=== PATIENT | female | born 1990 | race Caucasian/White ===

== ENCOUNTER 2018-07-23 13:01 | Emergency (ER) | payer SELFPAY ==
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
== END 2018-07-23 15:10 | disposition home or self-care (01) ==
LOC: JD.ED 13:01
DX: R56.9 Unspecified convulsions (principal); F10.10 Alcohol abuse, uncomplicated; Z79.899 Other long term (current) drug therapy; Z87.891 Personal history of nicotine dependence
CPT/HCPCS: 36415; 80053; 80306; 82550; 83735; 84100; 85007; 85027; 99284; G0480

== ENCOUNTER 2019-10-14 14:44 | Emergency (ER) | payer SELFPAY ==
[2019-10-14] MEDS ORDERED: Sodium Chloride 0.9% 10 ML Syringe FLUSH PRN (15:11)
[2019-10-14] MEDS ORDERED: LORazepam 2 MG/ML SDV IVPUSH ONE (15:12)
[2019-10-14] MEDS ORDERED: levETIRAcetam 1,500 MG in Sodium Chloride 0.9% 100 ML IV ONE (15:14)
[2019-10-14] MEDS ORDERED: Sodium Chloride 0.9% 1,000 ML IV SCH (15:15)
--- NOTE | 2019-10-14 15:26 | EDM.PDOC ---
ED HPI GENERAL MEDICAL PROBLEM - General Chief Complaint: Neurological Problem Stated Complaint: SEIZURE Time Seen by Provider: 10/14/19 14:58 Source of Information: Reports: Patient History Limitations: Reports: No Limitations - History of Present Illness INITIAL COMMENTS - FREE TEXT/NARRATIVE: The patient presents with a headache after having 2 seizures. She has a history of seizures and she ran out of [employer] on Tuesday. [facility] pharmacy was closed Tuesday afternoon and she was not able to fill it. Today she has 2 seizures lasting a few minutes. She did hit her head a couple of times. She has a headache now. She has no numbness or weakness. She has no neck pain. She has no fever, chills, cough, chest pain, shortness of breath, abdominal pain , nausea or vomiting. Onset: Sudden Duration: Hour(s): Location: Reports: Head Quality: Reports: Sharp Severity: Moderate Improves with: Reports: Immobilization Worsens with: Reports: Movement Context: Reports: Trauma (fell) Associated Symptoms: Reports: No Other Symptoms - Related Data Allergies Allergy/AdvReac Type Severity Reaction Status Date / Time No Known Allergies Allergy Verified 07/23/18 13:19 Home Meds: Home Meds levETIRAcetam [Keppra] 1,125 mg PO BID 07/23/18 [History] Past Medical History Genitourinary History: Reports: Renal Calculus Neurological History: Reports: Seizure - Past Surgical History Female Surgical History: Reports: Lithotripsy/ESWL Social & Family History - Caffeine Use Caffeine Use: Reports: Tea ED ROS GENERAL - Review of Systems Review Of Systems: See Below Constitutional: Reports: No Symptoms HEENT: Reports: No Symptoms Respiratory: Reports: No Symptoms Cardiovascular: Reports: No Symptoms Endocrine: Reports: No Symptoms GI/Abdominal: Reports: No Symptoms : Reports: No Symptoms Musculoskeletal: Reports: No Symptoms Skin: Reports: No Symptoms Neurological: Reports: Headache - Physical Exam Exam: See Below Exam Limited By: No Limitations General Appearance: Alert, No Apparent Distress Ears: Normal External Exam Nose: Normal Inspection Head Exam: Other (Pain upon palpation to the right occipital region and right advent region) Neck: Normal Inspection, Supple, Non-Tender Respiratory/Chest: No Respiratory Distress, Lungs Clear, Normal Breath Sounds Cardiovascular: Regular Rate, Rhythm, No Edema, No Murmur GI/Abdominal: Soft, Non-Tender, No Organomegaly, No Mass Neuro Exam (Abbreviated): Alert, Oriented, No Motor/Sensory Deficits Course - Vital Signs Last Recorded V/S: Last Vital Signs Temp 97.9 F 10/14/19 14:58 Pulse 82 10/14/19 14:58 Resp 16 10/14/19 14:58 BP 106/53 L 10/14/19 14:58 Pulse Ox 94 L 10/14/19 14:58 - Orders/Labs/Meds Orders: Active Orders 24 hr Category Date Time Status Cardiac Monitoring [RC] . DIRECTED Care 10/14/19 15:12 Active Peripheral IV Care [RC] . DIRECTED Care 10/14/19 15:12 Active Sodium Chloride 0.9% [Normal Saline] 1,000 ml Med 10/14/19 15:15 Active IV .BOLUS Sodium Chloride 0.9% [Saline Flush] Med 10/14/19 15:11 Active 10 ml FLUSH ASDIRECTED PRN Peripheral IV Insertion Adult [OM.PC] Stat Oth 10/14/19 15:11 Ordered Medication Orders Sodium Chloride (Normal Saline) 1,000 mls @ 1,000 mls/hr IV .BOLUS JOSE Last Admin: 10/14/19 15:27 Dose: 1,000 mls/hr Sodium Chloride (Saline Flush) 10 ml FLUSH ASDIRECTED PRN PRN Reason: Keep Vein Open Last Admin: 10/14/19 15:28 Dose: 10 ml Labs: Laboratory Tests 10/14/19 10/14/19 Range/Units 15:05 15:05 WBC 8.56 (3.98-10.04) K/mm3 RBC 4.42 (3.98-5.22) M/mm3 Hgb 13.7 (11.2-15.7) gm/dl Hct 41.4 (34.1-44.9) % MCV 93.7 (79.4-94.8) fl MCH 31.0 (25.6-32.2) pg MCHC 33.1 (32.2-35.5) g/dl RDW Std Deviation 40.3 (36.4-46.3) fL Plt Count 94 L D (182-369) K/mm3 MPV 11.4 (9.4-12.3) fl Neut % (Auto) 81.4 H (34.0-71.1) % Lymph % (Auto) 11.0 L (19.3-51.7) % [place] % (Auto) 5.6 (4.7-12.5) % Eos % (Auto) 1.6 (0.7-5.8) Baso % (Auto) 0.2 (0.1-1.2) % Neut # (Auto) 6.96 H (1.56-6.13) K/mm3 Lymph # (Auto) 0.94 L (1.18-3.74) K/mm3 [place]kin # (Auto) 0.48 H (0.24-0.36) K/mm3 Eos # (Auto) 0.14 (0.04-0.36) K/mm3 Baso # (Auto) 0.02 (0.01-0.08) K/mm3 Manual Slide Review Sodium 140 (136-145) mEq/L Potassium 3.8 (3.5-5.1) mEq/L Chloride 106 (98-107) mEq/L Carbon Dioxide 24 (21-32) mEq/L Anion Gap 13.8 (5-15) BUN 11 (7-18) mg/dL Creatinine 0.7 (0.55-1.02) mg/dL Est Cr Clr Drug Dosing 111.01 mL/min Estimated GFR (MDRD) > 60 (>60) mL/min BUN/Creatinine Ratio 15.7 (14-18) Glucose 100 (74-106) mg/dL Calcium 8.6 (8.5-10.1) mg/dL Magnesium 1.8 (1.8-2.4) mg/dl Total Bilirubin 0.3 (0.2-1.0) mg/dL AST 12 L (15-37) U/L ALT 20 (14-59) U/L Alkaline Phosphatase 59 (46-116) U/L Total Protein 7.2 (6.4-8.2) g/dl Albumin 3.8 (3.4-5.0) g/dl Globulin 3.4 gm/dL Albumin/Globulin Ratio 1.1 (1-2) Meds: Medications Generic Name Dose Route Start Last Admin Trade Name Freq PRN Reason Stop Dose Admin Sodium Chloride 1,000 mls @ 1,000 mls/hr 10/14/19 15:15 10/14/19 15:27 Normal Saline IV 1,000 mls/hr .BOLUS JOSE Administration Sodium Chloride 10 ml 10/14/19 15:11 10/14/19 15:28 Saline Flush FLUSH 10 ml ASDIRECTED PRN Administration Keep Vein Open Discontinued Medications Generic Name Dose Route Start Last Admin Trade Name Freq PRN Reason Stop Dose Admin Levetiracetam 1,500 mg/ Sodium 115 mls @ 400 mls/hr 10/14/19 15:14 10/14/19 15:28 Chloride IV 10/14/19 15:28 400 mls/hr ONETIME ONE Administration Lorazepam 1 mg 10/14/19 15:12 10/14/19 15:27 Ativan IVPUSH 10/14/19 15:13 1 mg ONETIME ONE Administration - Re-Assessments/Exams Free Text/Narrative Re-Assessment/Exam: 10/14/19 15:25 I ordered an IV NS 1L bolus, ativan 1mg IV, keppra 1,500mg IV, labs and a CT of his head. 10/14/19 16:[address] shows noting acute. Her CBC and CMP look good. I will let the keppra go in and discharge her after that. 10/14/19 17:17 She is doing better. I will discharge her home. She does have an active prescription at [facility] she just could not pick it up. She she should be good until morning. Departure - Departure Time of Disposition: 17:20 Disposition: Home, Self-Care 01 Condition: Good Clinical Impression: Seizure - Discharge Information *PRESCRIPTION DRUG MONITORING PROGRAM REVIEWED*: Not Applicable *COPY OF PRESCRIPTION DRUG MONITORING REPORT IN PATIENT SALLY: Not Applicable Referrals: PCP,None [Primary Care Provider] - Forms: ED Department Discharge Additional Instructions: Go home and rest. Get your prescription in the morning. Please return if you are worse. Sepsis Event Note - Evaluation Sepsis Screening Result: No Definite Risk - Focused Exam Vital Signs: Vital Signs Temp Pulse Resp BP Pulse Ox 10/14/19 14:58 97.9 F 82 16 106/53 L 94 L Date Exam was Performed: 10/14/19 Time Exam was Performed: 17:17 - My Orders Last 24 Hours: My Active Orders 10/14/19 15:11 Sodium Chloride 0.9% [Saline Flush] 10 ml FLUSH ASDIRECTED PRN Peripheral IV Insertion Adult [OM.PC] Stat 10/14/19 15:12 Cardiac Monitoring [RC] . DIRECTED Peripheral IV Care [RC] . DIRECTED 10/14/19 15:15 Sodium Chloride 0.9% [Normal Saline] 1,000 ml IV .BOLUS - Assessment/Plan Last 24 Hours: My Active Orders 10/14/19 15:11 Sodium Chloride 0.9% [Saline Flush] 10 ml FLUSH ASDIRECTED PRN Peripheral IV Insertion Adult [OM.PC] Stat 10/14/19 15:12 Cardiac Monitoring [RC] . DIRECTED Peripheral IV Care [RC] . DIRECTED 10/14/19 15:15 Sodium Chloride 0.9% [Normal Saline] 1,000 ml IV .BOLUS
--- NOTE | 2019-10-14 16:06 | CT ---
Head CT Technique: Multiple axial sections through the brain were obtained. Intravenous contrast was not utilized. Comparison: Prior head CT study of 04/23/18 and MRI brain of 05/15/18. Findings: Ventricles along with basal cisterns and sulci over the convexities appear within normal limits for the patient's age. No abnormal parenchymal densities are seen. No evidence of intracranial hemorrhage. No midline shift or mass-effect is seen. Bone window settings were reviewed. No acute calvarial finding is seen. Visualized paranasal sinuses and mastoid sinuses show nothing acute. Impression: 1. Nothing acute is appreciated on noncontrast head CT study. Diagnostic code #1 This report was dictated in MDT
== END 2019-10-14 17:34 | disposition home or self-care (01) ==
LOC: JD.ED 14:44
DX: R56.9 Unspecified convulsions (principal); Z79.899 Other long term (current) drug therapy
CPT/HCPCS: 36415; 70450; 80053; 83735; 85025; 96365; 96375; 99285; J1953; J2060; J7030; J7050; 99284